=== PATIENT | male | born 2000 | race American Indian/Alaskan Native ===

== ENCOUNTER 2021-09-20 14:42 | Emergency (ER) | payer SELFPAY ==
[2021-09-20 15:18] VITALS: BP 154/82
[2021-09-20] MEDS ORDERED: LIDOCAINE-MPF (1%) 10 MG/1 ML VIAL 5 ML INFILTRATI ONE (16:30)
--- NOTE | 2021-09-20 16:35 | Emergency Department Report ---
ED General Adult HPI - General Chief complaint: Urogenital-Male Stated complaint: PENIS BURNING Time Seen by Provider: 09/20/21 16:15 Source: patient Mode of arrival: Ambulatory Limitations: No Limitations - History of Present Illness Initial comments: 20-year-old -[place] male patient presents with complaints of dysuria and itching to the penis x a few days. Patient states his symptoms feel similar to when he had chlamydia. He admits to recent unprotected sexual intercourse. He denies any penile/testicular pain/swelling, penile discharge, abdominal pain, throat pain, or joint pain. No current pain per patient. NKDA. Denies past medical history - Related Data Previous Rx's Medication Instructions Recorded Last Taken Type Neomy/Polymyx B/Hc Otic Susp 4 drops OTIC TID #1 bottle 05/28/16 Unknown Rx [Cortisporin (Otic) Susp] Doxycycline Monohydrate 100 mg PO BID 7 Days #14 cap 09/20/21 Unknown Rx [Doxycycline Monohydrate CAP] metroNIDAZOLE [Flagyl] 2,000 mg PO ONCE 1 Days #4 tab 09/20/21 Unknown Rx Allergies Allergy/AdvReac Type Severity Reaction Status Date / Time No Known Allergies Allergy Unverified 05/28/16 15:47 ED Review of Systems ROS: Stated complaint: PENIS BURNING Other details as noted in HPI Constitutional: denies: chills, fever, malaise, weakness Gastrointestinal: denies: abdominal pain, nausea, vomiting Genitourinary: dysuria. denies: urgency, frequency, hematuria, discharge, testicular pain, testicular mass Skin: denies: change in color Neurological: denies: headache ED Past Medical Hx - Social History Smoking Status: Never Smoker Substance Use Type: None - Medications Home Medications: Home Medications Medication Instructions Recorded Confirmed Last Taken Type Neomy/Polymyx B/Hc Otic Susp 4 drops OTIC TID #1 bottle 05/28/16 Unknown Rx [Cortisporin (Otic) Susp] Doxycycline Monohydrate 100 mg PO BID 7 Days #14 cap 09/20/21 Unknown Rx [Doxycycline Monohydrate CAP] metroNIDAZOLE [Flagyl] 2,000 mg PO ONCE 1 Days #4 tab 09/20/21 Unknown Rx ED Physical Exam - General Limitations: No Limitations General appearance: alert, in no apparent distress - Head Head exam: Present: atraumatic, normocephalic - Eye Eye exam: Present: normal appearance - Respiratory Respiratory exam: Absent: respiratory distress - Cardiovascular Cardiovascular Exam: Present: regular rate - GI/Abdominal GI/Abdominal exam: Absent: tenderness - exam: Present: other (Patient deferred exam) - Extremities Exam Extremities exam: Present: normal inspection - Neurological Exam Neurological exam: Present: alert, oriented X3 - Psychiatric Psychiatric exam: Present: normal affect, normal mood - Skin Skin exam: Present: warm, dry, intact, normal color. Absent: rash ED Course Vital Signs 09/20/21 15:16 Temperature 98.7 F Pulse Rate 67 Respiratory 17 Rate Blood Pressure 154/82 O2 Sat by Pulse 98 Oximetry ED Medical Decision Making - Medical Decision Making 20-year-old -[place] male patient presents with complaints of dysuria and itching to the penis x a few days. Patient states his symptoms feel similar to when he had chlamydia. He admits to recent unprotected sexual intercourse. He denies any penile/testicular pain/swelling, penile discharge, abdominal pain, throat pain, or joint pain. No current pain per patient. NKDA. Denies past medical history Empiric treatment for gonorrhea given with Rocephin here in ED. Patient will discharge home with Flagyl and doxycycline for chlamydia and trichomonas empiric treatment. Recommend patient follows up with the health department within 2 to 3 days for full STI testing and also inform his partner to get tested and treated. He is otherwise well-appearing, his vitals are within normal limits, he is stable for discharge home. Strict return precautions were discussed in detail with patient who verbalized understanding Critical care attestation.: If time is entered above; I have spent that time in minutes in the direct care of this critically ill patient, excluding procedure time. ED Disposition Clinical Impression: Dysuria Disposition: HOME / SELF CARE / HOMELESS Is pt being admited?: No Condition: Stable Instructions: Safe Sex Prescriptions: Doxycycline Monohydrate [Doxycycline Monohydrate CAP] 100 mg PO BID 7 Days #14 cap metroNIDAZOLE [Flagyl] 2,000 mg PO ONCE 1 Days #4 tab Referrals: [facility] [Outside] - 3-5 Days [facility] [Provider Group] - 3-5 Days Forms: Work/School Release Form(ED)
== END 2021-09-20 17:32 | disposition home or self-care (01) ==
LOC: ED 14:42
DX: R30.0 Dysuria (principal); Z79.899 Other long term (current) drug therapy
CPT/HCPCS: 96372; 99282; J0696; J3490